=== PATIENT | male | born 1960 | race African-American/Black ===

== ENCOUNTER 2018-01-29 11:06 | Emergency (ER) | payer OTHER ==
[2018-01-29 11:08] VITALS: Ht 177.8 cm
[2018-01-29 11:58] LABS: BASOPHIL % 1.4 % (0-2); PLATELET COUNT 238 x10^3mcL (130-400)
[2018-01-29 11:59] LABS: CALCIUM 8.9 mg/dL (8.5-10.1); CARBON DIOXIDE 22.8 mmol/L (21-32); CHLORIDE SERUM 107 mmol/L (98-107); CREATININE SERUM 1.1 mg/dL (0.7-1.3); GFR1 > 60 mL/min; GLUCOSE SERUM 94 mg/dL (74-106); POTASSIUM SERUM 3.7 mmol/L (3.5-5.1); SODIUM SERUM 142 mmol/L (136-145)
[2018-01-29 12:04] LABS: ALBUMIN 4.2 g/dL (3.4-5.0); ALKALINE PHOSPHATASE 106 U/L (46-116); ALT/SGPT 112 U/L (16-63); AST/SGOT 45 U/L (15-37); BILIRUBIN TOTAL 0.21 mg/dL (0.20-1.00); TOTAL PROTEIN, SERUM 7.9 g/dL (6.4-8.2)
[2018-01-29 12:08] LABS: RED CELL DISTRIBUTION WIDTH 15.5 % (11.5-14.5)
[2018-01-29] MEDS ORDERED: ACETAMINOP160 MG/54 (12:37)
[2018-01-29] MEDS ORDERED: IPRATROPIUM BR2.5 ML (12:37)
[2018-01-29] MEDS ORDERED: LEVALBUTER0.31 MG/1 IH (12:37)
[2018-01-29] MEDS ORDERED: KEPPRA500 MG PO (12:37)
[2018-01-29] MEDS ORDERED: ELOCON0.11 TOP (12:38)
[2018-01-29] MEDS ORDERED: LISINOPRIL2.5 MG PO (12:38)
[2018-01-29] MEDS ORDERED: NORVASC2.5 MG PO (12:38)
[2018-01-29] MEDS ORDERED: DILANTIN100 MG PO (12:38)
[2018-01-29] MEDS ORDERED: ATORVASTATIN CA40 M1 PO (12:38)
[2018-01-29] MEDS ORDERED: XARELTO10 M1 PO (12:38)
[2018-01-29 13:06] VITALS: BP 134/71
[2018-01-29 13:07] LABS: AMPHETAMINE QUAL UR NONE DETECTED (See below)
== END 2018-01-29 13:21 | disposition short-term general hospital (02) ==
LOC: ED 11:06
PROVIDERS: Emergency Medicine
DX: G40.901 Epilepsy, unspecified, not intractable, with status epilepticus (principal); S12.111A Posterior displaced Type II dens fracture, initial encounter for closed fracture; J44.9 Chronic obstructive pulmonary disease, unspecified; I25.10 Atherosclerotic heart disease of native coronary artery without angina pectoris; I10 Essential (primary) hypertension; E78.5 Hyperlipidemia, unspecified; Z86.718 Personal history of other venous thrombosis and embolism; X58.XXXA Exposure to other specified factors, initial encounter; Y93.89 Activity, other specified; Y92.89 Other specified places as the place of occurrence of the external cause; Y99.8 Other external cause status
CPT/HCPCS: G0480; J1953; J2001; J2060; J2250; J3490